=== PATIENT | female | born 2000 | race African-American/Black ===

== ENCOUNTER 2020-09-14 17:34 | Emergency (ER) | payer BC ==
[2020-09-14] MEDS ORDERED: PROPOFOL INJ 200 MG/20 ML VIAL IV ONE (17:54)
[2020-09-14] MEDS ORDERED: FENTANYL CITRATE INJ/PF 100 MCG/2 ML AMPUL IV ONE (17:54)
[2020-09-14] MEDS ORDERED: NORMAL SALINE 1000 ML 1,000 ML IV ONE (18:00)
--- NOTE | 2020-09-14 18:06 | ER Document Report ---
ED General - General Chief Complaint: Knee Injury Stated Complaint: LEFT KNEE INJURY Time Seen by Provider: 09/14/20 17:47 Primary Care Provider: ANTONY NELSON DO [ACTIVE STAFF] - Follow up as needed - HPI Notes: Patient is a 20-year-old female who presents to the emergency department for evaluation of any injury. She was play wrestling with her boyfriend, twisted her knee, and sustained a left kneecap dislocation. She denies any other pain anywhere. No other injury. She puts her pain at a 5 out of 5. - Related Data Allergies/Adverse Reactions: amoxicillin Allergy (Verified 09/14/20 17:48) Penicillins Allergy (Verified 09/14/20 17:48) Home Medications: None Past Medical History - General Information source: Patient - Social History Smoking Status: Never Smoker Frequency of alcohol use: Social Drug Abuse: Marijuana Family History: Reviewed & Not Pertinent Review of Systems - Review of Systems Constitutional: No symptoms reported EENT: No symptoms reported Cardiovascular: No symptoms reported Respiratory: No symptoms reported Gastrointestinal: No symptoms reported Genitourinary: No symptoms reported Musculoskeletal: See HPI Skin: No symptoms reported Neurological/Psychological: No symptoms reported -: Yes All other systems reviewed and negative Physical Exam - Vital signs Vitals: Temp Pulse Resp BP Pulse Ox 98.8 F 73 19 116/67 100 09/14/20 17:42 09/14/20 17:42 09/14/20 17:42 09/14/20 17:42 09/14/20 17:42 - Notes Notes: This is a 20-year-old female who appears her stated age in a moderate amount of distress. She is screaming and crying, holds her left hip and knee in a flexed position. There is obvious deformity at the kneecap. Head is normocephalic and atraumatic, pupils are equal round, reactive to light. Onychosis moist. Heart regular rate and rhythm, lungs are clear to auscultation bilaterally. Abdomen is soft, nontender, normoactive bowel sounds. Patellar dislocation as noted ab ove. She is neurovascularly intact distally to the left lower extremity with palpable dorsalis pedis and posterior tibial pulses. Course - Re-evaluation Re-evalutation: 09/14/20 18:06 Patient presents to the emergency department for evaluation. She has an obvious patellar dislocation but is screaming out, will not even allow a full examination. I do believe that this patient will require sedation at this time. The procedure was explained in great detail. Questions were sought and answered. Consent was signed and placed on the chart. I would not proceed with reduction of this patellar dislocation. - Vital Signs Vital signs: Temp Pulse Resp BP Pulse Ox 98.8 F 60 13 139/76 H 100 09/14/20 17:42 09/14/20 18:16 09/14/20 18:33 09/14/20 18:33 09/14/20 18:33 - Diagnostic Test Radiology reviewed: Reports reviewed Radiology results interpreted by me: 09/14/20 18:54 Knee X-Ray 09/14/20 00:00 IMPRESSION: Patellar dislocation. No fracture is seen. Knee X-Ray 09/14/20 00:00 IMPRESSION: Successful reduction. Significant joint effusion. No fracture. Procedures - Conscious Sedation Conscious sedation Time started: 18:09 Time completed: 18:14 Normal healthy pt.: P1. - ASA Classification Airway Evaluation: Normal anatomy Mallampati Classification: Class 1 Used during procedure: Suction available, IV access obtained, Pulse ox on pt., sales account manager on pt. Medications administered: Diprivan Reversal agents: None I personally performed/intraservice time: Sedation, Procedure, 30 min or less Complications: Yes - Mild decrease in respiratory rate with desaturation. Notes: The procedure was explained in great detail. Questions were sought and answered. Consent was signed and placed on the chart. Patient was placed on a professor of biblical studies. IV fluids ordered. Patient was administered propofol. The hip was flexed, the knee was extended, and pressure was placed on the lateral aspect of the patella, pushing medially and posteriorly, with easy reduction of the patellar dislocation. Neurovascularly intact following. Patient did have some desaturation with a decreased respiratory rate. She had her oxygen saturation kept above 90% with a BMV. Bagging lasted for approximately 45 seconds. Patient responsive. Vital signs stable. Knee immobilizer placed while patient still somewhat sedated, she was neurovascularly intact following placement. - Joint Reduction/Fracture Care Left Knee Time completed: 18:09 Consent obtained: Yes Conscious sedation: Yes Pre-procedure NV exam: Yes Reduction attempts: 1 Notes: 09/14/20 18:25 Please see conscious sedation notes on details of reduction Discharge - Discharge Clinical Impression: Dislocation of left patella Qualifiers: Encounter type: initial encounter Qualified Code(s): S83.005A - Unspecified dislocation of left patella, initial encounter Condition: Stable Disposition: HOME-SNF (ED ONLY) Instructions: Dislocation of the Patella ([facility]), Knee Immobilizing Splint ([facility]) Additional Instructions: Maintain knee immobilizer. Use crutches to help with ambulation, but you are allowed to weight-bear. Please try to avoid bending the knee. Follow-up with orthopedics this week. Return to the emergency department with worsening or new concerning symptoms of any sort. Prescriptions: Naproxen [Naprosyn] 500 mg PO BID #20 tablet Forms: Parent Work Note Referrals: ANTONY NELSON DO [ACTIVE STAFF] - Follow up as needed
--- NOTE | 2020-09-14 18:16 | RADIOLOGY REPORT (SQ) ---
EXAM DESCRIPTION: KNEE LEFT 2 VIEWS IMAGES COMPLETED DATE/TIME: 09/14/2020 5:53 pm REASON FOR STUDY: positive dislocation COMPARISON: None. NUMBER OF VIEWS: Two views. TECHNIQUE: Lateral, and sunrise patella radiographic images acquired of the left knee. LIMITATIONS: None. FINDINGS: MINERALIZATION: Normal. BONES: No acute fracture or dislocation. No worrisome bone lesions. JOINT: Patellar dislocation. SOFT TISSUES: No soft tissue swelling. No radio-opaque foreign body. OTHER: No other significant finding. IMPRESSION: Patellar dislocation. No fracture is seen. TECHNICAL DOCUMENTATION: JOB ID: [id number] [employer]- All Rights Reserved Reading location - IP/workstation name: [email or web address]
--- NOTE | 2020-09-14 18:42 | RADIOLOGY REPORT (SQ) ---
EXAM DESCRIPTION: KNEE LEFT 2 VIEWS IMAGES COMPLETED DATE/TIME: 09/14/2020 6:33 pm REASON FOR STUDY: post reduction COMPARISON: None. NUMBER OF VIEWS: Two views. TECHNIQUE: AP and lateral radiographic images acquired of the left knee. LIMITATIONS: None. FINDINGS: MINERALIZATION: Normal. BONES: Patellar dislocation is been reduced. There is a significant joint effusion. No fracture. JOINT: Joint effusion. SOFT TISSUES: No soft tissue swelling. No radio-opaque foreign body. OTHER: No other significant finding. IMPRESSION: Successful reduction. Significant joint effusion. No fracture. TECHNICAL DOCUMENTATION: JOB ID: [id number] [employer]- All Rights Reserved Reading location - IP/workstation name: [email or web address]
[2020-09-14 19:06] VITALS: BP 134/81
== END 2020-09-14 19:06 ==
LOC: ER 17:34
PROC: 0QSFXZZ Reposition Left Patella, External Approach (ICD-10-PCS; principal; 2020-09-14)
DX: S83.005A Unspecified dislocation of left patella, initial encounter (principal); M25.562 Pain in left knee; X50.1XXA Overexertion from prolonged static or awkward postures, initial encounter; Z88.0 Allergy status to penicillin; F12.10 Cannabis abuse, uncomplicated
CPT/HCPCS: 99285; 96361; 99152; 96374; 96375; 73560; 27560; J3010; J7030; J2704

== ENCOUNTER → 2020-09-23 | Outpatient (CLI) | payer BC ==
--- NOTE | 2020-09-24 12:29 | RADIOLOGY REPORT (SQ) ---
EXAM DESCRIPTION: MRI LT LOWER JOINT WITHOUT IMAGES COMPLETED DATE/TIME: 09/23/2020 5:47 pm REASON FOR STUDY: (S83.015A)LATERAL DISLOCATION OF LEFT PATELLA, INITIAL ENCOUNTER S83.015A LATERAL DISLOCATION OF LEFT PATELLA, INITIAL ENCOUN COMPARISON: None. TECHNIQUE: Leftknee images acquired and stored on PACS. Multiplanar images include fat sensitive se quences as T1, water sensitive sequences as FST2 or STIR, cartilage sensitive sequences as FSPD, and gradient echo sequences. LIMITATIONS: Motion. FINDINGS: JOINT AND BURSAE: Joint effusion/hemarthrosis. BONE CORTEX AND MARROW: 1.8 x 1.9 x 2.9 cm well-circumscribed, non expansile intramedullary lesion in the femoral diaphysis. Probable enchondroma. No corresponding abnormality seen on recent plain adrian m. Bone contusions distal femur and medial margin of patella consistent with clinical history of recent lateral patellar dislocation. ACL: Intact. No degeneration or ganglion cyst. PCL: Intact. MCL: Intact. No periligamentous edema or fluid. LCL: Intact. No periligamentous edema or fluid. MEDIAL MENISCUS: No tears. No abnormal signal. LATERAL MENISCUS: No tears. No abnormal signal. MEDIAL COMPARTMENT: Cartilage preserved. Subchondral edema medial margin femoral condyle. LATERAL COMPARTMENT: Cartilage preserved. Subchondral edema lateral condyle. PATELLA: Subchondral edema medial margin. Full-thickness fissuring of the adjacent patellar cartilag e. High-grade tear of the retinaculum and femoropatellar ligaments. EXTENSOR MECHANISM: Intact. Quadriceps and patella tendons normal. SOFT TISSUES: Low-grade muscle strains vastus lateralis and vastus medialis. OTHER: No other significant finding. IMPRESSION: 1. Bone contusion pattern consistent with recent lateral patellar dislocation. Fissuring of the artis llar cartilage along the medial margin. No loose body identified. High-grade tear of the retinaculu m and medial patellofemoral ligaments. Low-grade muscle strain vastus lateralis and medialis. 2. Incidental lesion in the femoral diaphysis, most likely a benign enchondroma. Consider correlatio n with bone scan after healing of the patient's injury. TECHNICAL DOCUMENTATION: JOB ID: [id number] 2010 [employer]- All Rights Reserved Reading location - IP/workstation name: [email or web address]
== END ==
LOC: RAD 16:49
PROVIDERS: ATTEND Orthopaedic Surgery
DX: S83.015A Lateral dislocation of left patella, initial encounter (principal); S76.192A Other specified injury of left quadriceps muscle, fascia and tendon, initial encounter; S70.12XA Contusion of left thigh, initial encounter; X58.XXXA Exposure to other specified factors, initial encounter; Y93.89 Activity, other specified; Y92.89 Other specified places as the place of occurrence of the external cause